=== PATIENT | male | born 1960 | race Caucasian/White ===

== ENCOUNTER 2016-09-07 06:30 | Day surgery (SDC) | payer BC ==
--- NOTE | ~2016-09-07 | OP ---
Record Of Operation [facility] [address] [place]. [address] NAME: AZUCENA ANGEL : 58 STATUS : [facility]#: [id number] AGE: 55 ADM/REG DATE : 09/07/16 MR#: [id number] REPORT SERV DATE: 09/07/16 DICTATED BY: NEGRO TALBERT DATE: 09/07/16 REPORT STATUS : Draft TRANSCRIBED BY: GINO DATE: 09/07/16 DATE OF PROCEDURE: 09/07/2016 PREOPERATIVE DIAGNOSIS: Phlebosclerosis. POSTOPERATIVE DIAGNOSIS: Phlebosclerosis. OPERATION PERFORMED: Left internal jugular Port-A-Cath placement under ultrasound and fluoroscopic guidance. SURGEON: Negro Talbert M.D. ANESTHESIA: MAC plus local. ESTIMATED BLOOD LOSS: Less than 10 mL. IV FLUIDS: Adequate. DESCRIPTION OF OPERATION: After appropriate sedation, the patient was prepped and draped in proper sterile fashion. Ultrasound probe was placed over the left neck. He had a patent and pliable left internal jugular vein. The left neck and left chest wall were infiltrated with local anesthesia. We placed a 14-gauge needle, it was then used to cannulate the left internal jugular vein under ultrasound guidance. A guidewire was fed under fluoroscopic guidance just above the right heart. A transverse incision was made at the right chest wall. Subcutaneous tissues were incised down to pectoralis fascia and pocket was bluntly dissected. We then placed introducer sheath over the guidewire. A catheter was then fed through the introducer sheath with the tip being just above the right heart. The catheter was then tunneled subcutaneously to the port pocket and secured to the port. The port was secured to the chest wall using 3-0 Vicryl suture. The port was flushed and aspirated easily. We took confirmatory imaging with C-arm. The skin was closed using interrupted 3-0 Vicryl sutures. Steri-Strips and dressings were then placed. The patient was taken to the recovery room for chest x-ray. EWELINA/GINO Negro Talbert M.D. / [id number] CC: Cinda Mejia GEORGE N.
[~2016-09-07 06:30] MED LIST: ASAB PO; DSS PO; FLAG500TAB PO; MSCONT15 PO; OXYCOD PO; REG PO; SYMBICORT 80/4.1 INH INH; VENTOLIN HFA INH; VITAMIN D31000 UNIT PO; ZYVOXPO PO; [UNRECOGNIZED DRUG - OTHER] PO
[2016-09-07 07:29] LABS: BASOPHILS 0.4 %; BASOPHILS ABSOLUTE 0.01 10/3/uL (0.0-0.16); EOSINOPHILS 0.9 %; EOSINOPHILS ABSOLUTE 0.02 10/3/uL (0.0-0.53); LYMPHOCYTES 24.2 %; LYMPHOCYTES ABSOLUTE 0.56 10/3/uL (0.67-4.30); MEAN CORPUS HGB CONC 33.3 g/dL (32.0-36.0); MONOCYTES 16.5 %; MONOCYTES ABSOLUTE 0.38 10/3/uL (0.21-1.20); NEUTROPHILS ABSOLUTE 1.34 10/3/uL (2.02-8.40); RBC DISTRIBUTION WIDTH 15.1 % (12.0-16.0)
[2016-09-07 07:33] LABS: HEMATOCRIT 26.1 % (40.0-51.0); HEMOGLOBIN 8.7 g/dL (13.6-17.8); MANUAL DIFF NO %; PLATELET COUNT 252 10/3/uL (150-400); RED CELL COUNT 2.72 10/6/uL (4.7-6.1); WHITE BLOOD CELLS 2.3 10/3/uL (4.5-10.5)
[2016-09-07 07:39] LABS: BUN (BLOOD UREA NITROGEN) 12 MG/DL (6-23); CALCIUM, SERUM 9.3 MG/DL (8.5-10.4); CHLORIDE, SERUM 102 MMOL/L (96-112); CO2 (CARBON DIOXIDE) 29 MMOL/L (24-34); CREATININE 0.68 MG/DL (0.70-1.30); GFR AFRICAN AMERICAN 124 ML/MIN (>=60); GFR NON AFRICAN AMERICAN 107 ML/MIN (>=60); GLUCOSE, SERUM 110 MG/DL (60-99); POTASSIUM, SERUM 3.5 MMOL/L (3.5-5.3); SODIUM, SERUM 138 MMOL/L (135-148)
== END 2016-09-07 10:19 | disposition home or self-care (01) ==
LOC: SDC 06:30
PROVIDERS: Specialist
PROC: B514YZA Fluoroscopy of Left Jugular Veins using Other Contrast, Guidance (ICD-10-PCS; 2016-09-07)
PROC: B544ZZA Ultrasonography of Left Jugular Veins, Guidance (ICD-10-PCS; 2016-09-07)
PROC: 05HN33Z Insertion of Infusion Device into Left Internal Jugular Vein, Percutaneous Approach (ICD-10-PCS; principal; 2016-09-07 07:45)
DX: I87.8 Other specified disorders of veins (principal); J44.9 Chronic obstructive pulmonary disease, unspecified; I10 Essential (primary) hypertension; F17.210 Nicotine dependence, cigarettes, uncomplicated; G47.33 Obstructive sleep apnea (adult) (pediatric); J45.909 Unspecified asthma, uncomplicated; Z88.0 Allergy status to penicillin; Z98.890 Other specified postprocedural states
CPT/HCPCS: 71010; 77001; 80048; 85025; 93005; C1788; J0690; J2250; J3010; Q9967